=== PATIENT | female | born 1975 ===

== ENCOUNTER 2021-11-25 17:29 | Emergency (ER) | payer BC ==
[2021-11-25] MEDS ORDERED: Sodium Chloride 0.9% 10 ML Syringe FLUSH PRN (18:46)
[2021-11-25] MEDS ORDERED: Glucagon,Human Recombinant 1 MG Vial IVPUSH ONE (18:46)
[2021-11-25] MEDS ORDERED: Barium Sulfate w/v 2.1% Oral Susp 450 ML Bottle PO ONE (20:56)
== END 2021-11-25 21:21 | disposition left against medical advice (07) ==
LOC: DL.ED 17:29
DX: T18.108A Unspecified foreign body in esophagus causing other injury, initial encounter (principal)
CPT/HCPCS: 96374; 99283-25; J1610; J3490